=== PATIENT | female | born 1995 | race American Indian/Alaskan Native ===

== ENCOUNTER 2017-12-12 10:33 | Outpatient (CLI) | payer BC ==
--- NOTE | 2017-12-15 08:20 | Ultrasound Report ---
RIGHT BREAST ULTRASOUND: 12/12/17 10:33:00 CLINICAL: 22-year-old with a palpable right breast lump. She states that it is smaller and is nontender. COMPARISON: None. FINDINGS: Ultrasound of the right breast demonstrated an oval solid hypoechoic mass versus complex cyst at 9 o'clock 6 cm from the nipple. It measures 6 x 3 x 4 mm and correlates with the palpable lump. IMPRESSION: A probably benign 6 mm mass at 9 o'clock 6 cm from the nipple. Sonographic features suggest benign fibroadenoma or complex cyst. BI-RADS 3 - - Probably Benign RECOMMENDATION: Six month followup right breast ultrasound.
== END 2017-12-12 10:34 | disposition home or self-care (01) ==
LOC: US 10:33
DX: N63.11 Unspecified lump in the right breast, upper outer quadrant (principal)